=== PATIENT | male | born 1960 | race African-American/Black ===

== ENCOUNTER → 2016-11-06 | Outpatient (CLI) | payer MEDICARE, MEDICAID ==
[~2016-11-06] MED LIST: ALLO300T PO; AMLO10TA2 PO; ASPI-515 PO; BECL8.7A5 INH; CALC0.25 PO; CARV-39 PO; CHOL500014 PO; CLOP75TA PO; DOCU250C2 PO; HYDR-3138 PO; HYDR-3342 PO; INSU100V8 SQ; ISON300T4 PO; LATA2.5D3 EACHEYE; LEVE250T28 PO; LINA145C PO; METO5TAB2 PO; METO5TAB5 PO; ONDA4TAB7 PO; SEVE800T8 PO; SIMV20TA3 PO; TORS20TA2 PO; TRAM50TA2 PO
== END | disposition home or self-care (01) ==
LOC: CFH 12:20
PROVIDERS: ATTEND Specialist
DX: I67.89 Other cerebrovascular disease (principal)
CPT/HCPCS: 93880

== ENCOUNTER → 2017-03-28 | Outpatient (CLI) | payer MEDICARE, MEDICAID ==
[~2017-03-28] MED LIST changes: +AMINOPHYLLINE 25 MG/ML, 10ML ONE; +REGADENOSON 0.4 MG/5 ML SYRINGE ONE
== END | disposition home or self-care (01) ==
LOC: CFH 08:05
PROVIDERS: ATTEND Internal Medicine Cardiovascular Disease
DX: I63.9 Cerebral infarction, unspecified (principal)
CPT/HCPCS: 78452; 93017; A9502; J2785; J0280

== ENCOUNTER → 2018-05-20 | Outpatient (CLI) | payer MEDICARE, MEDICAID ==
[~2018-05-20] MED LIST changes: -AMINOPHYLLINE 25 MG/ML, 10ML ONE; -AMLO10TA2 PO; +AMLO10TA6 PO; -BECL8.7A5 INH; +BECL8.7A7 INH; -CHOL500014 PO; +CHOL500045 PO; -DOCU250C2 PO; +DOCU250C9 PO; -HYDR-3138 PO; +HYDR-3237 PO; -REGADENOSON 0.4 MG/5 ML SYRINGE ONE
== END | disposition home or self-care (01) ==
LOC: CFH 07:47
PROVIDERS: ATTEND Internal Medicine Cardiovascular Disease
DX: I31.3 Pericardial effusion (noninflammatory) (principal); I51.7 Cardiomegaly; E78.5 Hyperlipidemia, unspecified; E11.22 Type 2 diabetes mellitus with diabetic chronic kidney disease; N18.6 End stage renal disease
CPT/HCPCS: 93306

== ENCOUNTER → 2019-10-11 | Outpatient (CLI) | payer MEDICARE, MEDICAID ==
[~2019-10-11] MED LIST changes: -AMLO10TA6 PO; +AMLO10TA8 PO; +ISON300T10 PO; -ISON300T4 PO; +SIMV20TA19 PO; -SIMV20TA3 PO
== END | disposition home or self-care (01) ==
LOC: RAD 10:55
PROVIDERS: ATTEND Nurse Practitioner
DX: R76.11 Nonspecific reaction to tuberculin skin test without active tuberculosis (principal)
CPT/HCPCS: 71046

== ENCOUNTER 2020-01-29 10:10 | Inpatient (IN) | payer MEDICARE, MEDICAID ==
[~2020-01-29] VITALS: Ht 172.7 cm; Wt 94.8 kg
--- NOTE | 2020-01-29 10:30 | NUR ---
PT P/W FISTULA IN LEFT ARM THAT "HAS CLOTTED" PER SPOUSE AT BEDSIDE. PT HAS GETS DIALYSIS MWF. PT SENT HERE TO GET PERMACATH. PT DENIES ANY OTHER MEDICAL COMPLAINT AT THIS TIME.
[2020-01-29] MEDS ORDERED: DORZOLAMIDE EACHEYE (10:40)
[2020-01-29] MEDS ORDERED: OXYB15TA18 PO (10:40)
[2020-01-29] MEDS ORDERED: GABA300C PO (10:40)
[2020-01-29] MEDS ORDERED: [UNRECOGNIZED DRUG - OTHER] PO (10:40)
[2020-01-29] MEDS ORDERED: INSU100V8 SQ (10:40)
[2020-01-29] MEDS ORDERED: CARV6.252 PO (10:40)
--- NOTE | 2020-01-29 11:30 | NUR ---
PT TO BE ADMITTED TO GET DIALYSIS AND TEMPORARY CATH UNTIL PERMACATH CAN BE PLACED. PT ON BLOOOD THINNERS SO NOT ABLE TO GET PERMACATH TODAY.
--- NOTE | 2020-01-29 12:22 | NUR ---
PT IN IR.
[2020-01-29 12:28] LABS: BASOPHILS # (AUTO) 0.04 x10^3/uL (0-0.1); BASOPHILS % (AUTO) 1 % (0-1); EOSINOPHILS # (AUTO) 0.12 x10^3/uL (0-0.4); EOSINOPHILS % (AUTO) 2 % (1-7); LYMPHOCYTES # (AUTO) 1.23 x10^3/uL (1-3.4); LYMPHOCYTES % (AUTO) 19 % (22-44); MD NO; MEAN CORPUSCULAR HEMOGLOBIN 27.5 pg (27.5-34.5); MEAN CORPUSCULAR HGB CONC 32.1 g/dL (33.2-36.2); MEAN CORPUSCULAR VOLUME 85.8 fL (81-97); MEAN PLATELET VOLUME 9.6 fL (7.4-10.4); MONOCYTES # (AUTO) 0.52 x10^3/uL (0.2-0.8); MONOCYTES % (AUTO) 8 % (2-9); NEUTROPHILS # (AUTO) 4.49 x10^3/uL (1.8-6.8); NEUTROPHILS % (AUTO) 70 % (42-75); PLATELET COUNT 158 x10^3/uL (130-400); RED BLOOD COUNT 4.82 x10^6/uL (4.38-5.82); RED CELL DISTRIBUTION WIDTH 18.6 % (9.4-14.8)
[2020-01-29 12:38] LABS: ALBUMIN 3.9 g/dL (3.4-5.0); ANION GAP 7 mmol/L (5-15); CALCIUM 9.7 mg/dL (8.5-10.1); CHLORIDE 99 mmol/L (98-107)
[2020-01-29 12:41] LABS: ALANINE AMINOTRANSFERASE 16 U/L (12-78); ALKALINE PHOSPHATASE 74 U/L (45-117); BILIRUBIN,TOTAL 0.5 mg/dL (0.2-1.0); TOTAL PROTEIN 8.4 g/dL (6.4-8.2)
--- NOTE | 2020-01-29 13:00 | NUR ---
CHART UP FOR MD RECHECK. WAITING FOR ADMIT ORDERS.
--- NOTE | 2020-01-29 13:49 | NUR ---
CHART UP FOR MD RECHECK. WAITING FOR ADMIT ORDERS.
[2020-01-29] MEDS ORDERED: SODIUM CHLORIDE FLUSH 10ML SYR IVF PRN (15:00)
--- NOTE | 2020-01-29 15:53 | NUR ---
ATTEMPTED TO CALL REORT TWICE TO FLOOR BUT PRIMARY RN NOT ABLE TO TAKE REPORT. WILL CALL SOAP DRIER TENDER WHEN ABLE.
--- NOTE | 2020-01-29 15:54 | NUR ---
REPORT TO MED/TELE SUP IRAIDA SCHMIDT. UNABLE TO REACH HILARIO SCHMIDT X4
[2020-01-29] MEDS ORDERED: ACETAMINOPHEN 325 MG TABLET PO PRN (16:30)
[2020-01-29] MEDS ORDERED: DEXTROSE 50%, 50ML SYRINGE IVPush PRN (16:30)
[2020-01-29] MEDS ORDERED: LABETALOL 5MG/ML, 20ML IVPush PRN (16:30)
[2020-01-29] MEDS ORDERED: ONDANSETRON 2MG/ML, 2ML IVPush PRN (16:30)
[2020-01-29] MEDS ORDERED: GLUCAGON 1 MG IM PRN (16:30)
[2020-01-29] MEDS ORDERED: POLYETHYLENE GLYCOL 17 GM PACKET PO PRN (16:30)
[2020-01-29] MEDS ORDERED: DEXTROSE 4 GM TAB.CHEW PO PRN (16:30)
[2020-01-29] MEDS ORDERED: PHARMACY INSTRUCTION MC PRN (17:00)
[2020-01-29] MEDS: INSULIN LISPRO 100 UNITS/ML, PEN SQ-INSULIN SCH (19:59)
[2020-01-29 20:47] VITALS: BP 137/78
[2020-01-29] MEDS ORDERED: CARVEDILOL 6.25 MG TABLET PO SCH (21:00)
[2020-01-29] MEDS: SODIUM CHLORIDE FLUSH 10ML SYR IVF SCH (21:00)
[2020-01-29] MEDS: LATANOPROST OPHTH 0.005%, 2.5ML EACHEYE SCH (21:30)
[2020-01-29] MEDS: LACTULOSE 10 GM/15 ML UDC PO SCH (21:30)
[2020-01-29] MEDS: SIMVASTATIN 20 MG TABLET PO SCH (21:31)
[2020-01-29] MEDS: SEVELAMER CARBONATE 800MG TAB PO SCH (21:31)
[2020-01-29] MEDS: CARVEDILOL 6.25 MG TABLET PO SCH (21:31)
[2020-01-29] MEDS ORDERED: SILV20CR13 TP (22:29)
[2020-01-30 02:18] VITALS: BP 119/73
[2020-01-30 06:06] LABS: BASOPHILS # (AUTO) 0.03 x10^3/uL (0-0.1); BASOPHILS % (AUTO) 0 % (0-1); EOSINOPHILS # (AUTO) 0.13 x10^3/uL (0-0.4); EOSINOPHILS % (AUTO) 2 % (1-7); LYMPHOCYTES # (AUTO) 1.35 x10^3/uL (1-3.4); LYMPHOCYTES % (AUTO) 22 % (22-44); MD NO; MEAN CORPUSCULAR HEMOGLOBIN 27.7 pg (27.5-34.5); MEAN CORPUSCULAR HGB CONC 31.8 g/dL (33.2-36.2); MEAN CORPUSCULAR VOLUME 86.9 fL (81-97); MEAN PLATELET VOLUME 9.2 fL (7.4-10.4); MONOCYTES # (AUTO) 0.53 x10^3/uL (0.2-0.8); MONOCYTES % (AUTO) 9 % (2-9); NEUTROPHILS # (AUTO) 4.05 x10^3/uL (1.8-6.8); NEUTROPHILS % (AUTO) 67 % (42-75); PLATELET COUNT 143 x10^3/uL (130-400); RED BLOOD COUNT 4.53 x10^6/uL (4.38-5.82); RED CELL DISTRIBUTION WIDTH 18.8 % (9.4-14.8)
[2020-01-30 06:12] LABS: ALBUMIN 3.4 g/dL (3.4-5.0); ANION GAP 9 mmol/L (5-15); CALCIUM 9.1 mg/dL (8.5-10.1); CHLORIDE 102 mmol/L (98-107)
[2020-01-30 06:15] LABS: ALANINE AMINOTRANSFERASE 15 U/L (12-78); ALKALINE PHOSPHATASE 63 U/L (45-117); BILIRUBIN,TOTAL 0.5 mg/dL (0.2-1.0); TOTAL PROTEIN 7.3 g/dL (6.4-8.2)
[2020-01-30] MEDS: INSULIN LISPRO 100 UNITS/ML, PEN SQ-INSULIN SCH ×3 (07:00→16:00)
[2020-01-30 07:09] VITALS: BP 124/75
[2020-01-30] MEDS: SEVELAMER CARBONATE 800MG TAB PO SCH ×4 (08:20→21:21)
[2020-01-30] MEDS: SODIUM CHLORIDE FLUSH 10ML SYR IVF SCH (08:21)
[2020-01-30] MEDS: CARVEDILOL 6.25 MG TABLET PO SCH ×2 (08:21→08:26)
[2020-01-30] MEDS: GABAPENTIN 300 MG CAPSULE PO SCH (08:22)
[2020-01-30] MEDS: LACTULOSE 10 GM/15 ML UDC PO SCH ×2 (08:23→21:21)
[2020-01-30] MEDS ORDERED: CARVEDILOL 6.25 MG TABLET PO PRN (09:30)
[2020-01-30 12:46] VITALS: BP 122/66
[2020-01-30 18:21] VITALS: BP 117/79
[2020-01-30] MEDS: SIMVASTATIN 20 MG TABLET PO SCH (21:21)
[2020-01-30] MEDS: LATANOPROST OPHTH 0.005%, 2.5ML EACHEYE SCH (21:21)
[2020-01-31 02:39] VITALS: BP 119/65
[2020-01-31 07:08] VITALS: BP 146/96
[2020-01-31] MEDS: GABAPENTIN 300 MG CAPSULE PO SCH (08:36)
[2020-01-31] MEDS: SEVELAMER CARBONATE 800MG TAB PO SCH ×4 (08:41→21:00)
[2020-01-31] MEDS: LACTULOSE 10 GM/15 ML UDC PO SCH ×4 (08:47→22:14)
[2020-01-31] MEDS ORDERED: SILVER SULFADIAZINE MC SCH (09:00)
[2020-01-31 09:18] LABS: ANION GAP 10 mmol/L (5-15); CALCIUM 9.3 mg/dL (8.5-10.1); CHLORIDE 103 mmol/L (98-107)
[2020-01-31 13:26] VITALS: BP 131/85
[2020-01-31] MEDS ORDERED: POVIDONE IODINE 10% TP PRN (17:00)
[2020-01-31 18:51] VITALS: BP 137/85
[2020-01-31] MEDS: LATANOPROST OPHTH 0.005%, 2.5ML EACHEYE SCH (22:14)
[2020-01-31] MEDS: SIMVASTATIN 20 MG TABLET PO SCH (22:14)
[2020-02-01 02:06] VITALS: BP 116/74
[2020-02-01] MEDS: SEVELAMER CARBONATE 800MG TAB PO SCH ×3 (04:42→16:05)
[2020-02-01 06:37] VITALS: BP 114/67
[2020-02-01 09:52] LABS: ANION GAP 10 mmol/L (5-15); CHLORIDE 103 mmol/L (98-107)
[2020-02-01] MEDS: GABAPENTIN 300 MG CAPSULE PO SCH (10:06)
[2020-02-01] MEDS: LACTULOSE 10 GM/15 ML UDC PO SCH (10:07)
[2020-02-01] MEDS ORDERED: LIDOCAINE 1%, 10ML ONE (11:25)
[2020-02-01] MEDS ORDERED: LIDOCAINE 1%, 20ML ONE (11:26)
[2020-02-01] MEDS ORDERED: FENTANYL PF 100 MCG/2ML ONE (11:38)
[2020-02-01] MEDS ORDERED: MIDAZOLAM 1 MG/ML, 5ML ONE (11:38)
[2020-02-01] MEDS ORDERED: NALOXONE 1 MG/ML, 2ML ONE (11:39)
[2020-02-01] MEDS ORDERED: FLUMAZENIL 0.1 MG/1 ML, 5ML ONE (11:39)
== END 2020-02-01 18:46 | disposition home or self-care (01) | DRG 314 ==
LOC: ED 10:49 → EDIP 14:37 → 4WST 16:57
PROVIDERS: ADMIT Internal Medicine; ATTEND Hospitalist
PROC: 02HV33Z Insertion of Infusion Device into Superior Vena Cava, Percutaneous Approach (ICD-10-PCS; principal; 2020-01-29)
PROC: B5181ZA Fluoroscopy of Superior Vena Cava using Low Osmolar Contrast, Guidance (ICD-10-PCS; 2020-01-29)
PROC: B548ZZA Ultrasonography of Superior Vena Cava, Guidance (ICD-10-PCS; 2020-01-29)
PROC: 5A1D70Z Performance of Urinary Filtration, Intermittent, Less than 6 Hours Per Day (ICD-10-PCS; 2020-01-29)
PROC: 0JH63XZ Insertion of Tunneled Vascular Access Device into Chest Subcutaneous Tissue and Fascia, Percutaneous Approach (ICD-10-PCS; 2020-02-01)
PROC: 02HV33Z Insertion of Infusion Device into Superior Vena Cava, Percutaneous Approach (ICD-10-PCS; 2020-02-01)
PROC: B5181ZA Fluoroscopy of Superior Vena Cava using Low Osmolar Contrast, Guidance (ICD-10-PCS; 2020-02-01)
PROC: 5A1D70Z Performance of Urinary Filtration, Intermittent, Less than 6 Hours Per Day (ICD-10-PCS; 2020-02-01)
DX: T82.868A Thrombosis due to vascular prosthetic devices, implants and grafts, initial encounter (principal); N18.6 End stage renal disease; T82.510A Breakdown (mechanical) of surgically created arteriovenous fistula, initial encounter; I12.0 Hypertensive chronic kidney disease with stage 5 chronic kidney disease or end stage renal disease; D63.1 Anemia in chronic kidney disease; E11.22 Type 2 diabetes mellitus with diabetic chronic kidney disease; Z86.73 Personal history of transient ischemic attack (TIA), and cerebral infarction without residual deficits; H40.9 Unspecified glaucoma; M89.9 Disorder of bone, unspecified; E11.65 Type 2 diabetes mellitus with hyperglycemia; E78.5 Hyperlipidemia, unspecified; G40.909 Epilepsy, unspecified, not intractable, without status epilepticus; Y71.2 Prosthetic and other implants, materials and accessory cardiovascular devices associated with adverse incidents; J44.9 Chronic obstructive pulmonary disease, unspecified; Z88.8 Allergy status to other drugs, medicaments and biological substances; Y92.89 Other specified places as the place of occurrence of the external cause; Z79.02 Long term (current) use of antithrombotics/antiplatelets; Z79.4 Long term (current) use of insulin; Z79.82 Long term (current) use of aspirin; Z82.3 Family history of stroke; Z82.49 Family history of ischemic heart disease and other diseases of the circulatory system; Z99.2 Dependence on renal dialysis
CPT/HCPCS: 36415; 36556; 36558; 76937; 77001; 80048; 80053; 82962; 83735; 84100; 85025; 86705; 86706; 87340; 90935; 99156; 99157; 99285; C1894; G0378; J2250; J3010; C1750; C1751; C1769; J1642; J2310

== ENCOUNTER 2020-03-03 11:30 | Outpatient (CLI) | payer MEDICARE, MEDICAID ==
[~2020-03-03 11:30] MED LIST changes: +CARV6.252 PO; +DORZOLAMIDE EACHEYE; +GABA300C PO; +OXYB15TA18 PO; +SILV20CR13 TP; +[UNRECOGNIZED DRUG - OTHER] PO
== END 2020-03-03 23:59 | disposition home or self-care (01) ==
LOC: RAD 11:30
PROVIDERS: ATTEND Internal Medicine Nephrology
DX: R07.9 Chest pain, unspecified (principal)
CPT/HCPCS: 71046

== ENCOUNTER → 2021-01-17 | Outpatient (CLI) | payer MEDICARE, MEDICAID ==
[~2021-01-17] MED LIST changes: +AMLO-211 PO; -AMLO10TA8 PO; -ASPI-515 PO; +ASPI-963 PO; -LATA2.5D3 EACHEYE; +LATA2.5D4 EACHEYE
== END | disposition home or self-care (01) ==
LOC: RAD 09:28
PROVIDERS: ATTEND Nurse Practitioner Gerontology
DX: E21.0 Primary hyperparathyroidism (principal); K21.9 Gastro-esophageal reflux disease without esophagitis; E11.22 Type 2 diabetes mellitus with diabetic chronic kidney disease; J45.909 Unspecified asthma, uncomplicated; I63.9 Cerebral infarction, unspecified; N18.6 End stage renal disease; Z99.2 Dependence on renal dialysis; I12.0 Hypertensive chronic kidney disease with stage 5 chronic kidney disease or end stage renal disease
CPT/HCPCS: 71046